=== PATIENT | female | born 1965 | race Caucasian/White ===

== ENCOUNTER 2024-06-23 06:32 | Day surgery (SDC) | payer OTHER ==
[~2024-06-23] VITALS: Ht 182.9 cm; Wt 77.1 kg
[~2024-06-23 06:32] MED LIST: D350 MCG PO; K-TAB20 MEQ PO
[2024-06-23] MEDS ORDERED: LACTATED RINGER'S 1,000 ML IV ONE (06:53)
[2024-06-23] MEDS ORDERED: FAMOTIDINE 10MG/ML 2ML SDV IV ONE (06:53)
[2024-06-23 09:49] VITALS: BP 128/71
[2024-06-23] MEDS ORDERED: PROPOFOL 200 MG/20 ML VIAL IV ONE (10:30)
[2024-06-23] MEDS ORDERED: LIDOCAINE HCL 2% 2ML SDV IV ONE (10:30)
[2024-06-23] MEDS ORDERED: GLYCOPYRROLATE 0.2 MG/ML IV ONE (10:30)
[2024-06-23] MEDS ORDERED: STERILE WATER FOR IRRIGATION 1,000 ML BTL IR ONE (12:36)
== END 2024-06-23 10:12 | disposition home or self-care (01) | DRG 951 ==
LOC: ENDO 06:32
PROVIDERS: ATTEND Surgery
PROC: 0DJD8ZZ Inspection of Lower Intestinal Tract, Via Natural or Artificial Opening Endoscopic (ICD-10-PCS; principal; 2024-06-23)
DX: Z12.11 Encounter for screening for malignant neoplasm of colon (principal); K64.8 Other hemorrhoids